=== PATIENT | male | born 1950 | race American Indian/Alaskan Native ===

== ENCOUNTER 2017-05-08 00:19 | Emergency (ER) | payer MEDICARE ==
[2017-05-08 06:51] VITALS: BP 161/88
--- NOTE | 2017-05-08 08:59 | Emergency Department Report ---
ED ENT HPI - General Chief complaint: Upper Respiratory Infection Stated complaint: URI SX Time Seen by Provider: 05/08/17 08:03 Source: patient Mode of arrival: Ambulatory Limitations: No Limitations - History of Present Illness Initial comments: 67-year-old male past medical history sinusitis, herniated disc presents with complaint of approximately 1 week of nasal congestion and runny nose and sinus irritation/ache. States he has slightly dry cough which has resolved. Denies fevers chills nausea or vomiting. Awake alert and oriented 3. Nonacute distress. States he was taking [id number] nasal sprays with minimal relief of his symptoms. Onset/Timin -: month(s) Location: nose Severity: moderate Severity scale (0 -10): 6 Quality: aching Consistency: constant Improves with: none Worsens with: none Context- Dental: history of dental caries - Related Data Previous Rx's Medication Instructions Recorded Last Taken Type Amoxicillin/Potassium Clav 1 each PO BID #20 tablet 05/08/17 Unknown Rx [Augmentin 875-125 Tablet] Cetirizine HCl [ZyrTEC] 10 mg PO QDAY PRN #14 capsule 05/08/17 Unknown Rx Ibuprofen [Motrin] 600 mg PO Q8H PRN #30 tablet 05/08/17 Unknown Rx Allergies Allergy/AdvReac Type Severity Reaction Status Date / Time erythromycin base Allergy Rash Verified 05/08/17 00:58 Sulfa (Sulfonamide Allergy Itching Verified 05/08/17 00:58 Antibiotics) ED Dental HPI - General Chief complaint: Upper Respiratory Infection Stated complaint: URI SX Time Seen by Provider: 05/08/17 08:03 Source: patient Mode of arrival: Ambulatory Limitations: No Limitations - Related Data Previous Rx's Medication Instructions Recorded Last Taken Type Amoxicillin/Potassium Clav 1 each PO BID #20 tablet 05/08/17 Unknown Rx [Augmentin 875-125 Tablet] Cetirizine HCl [ZyrTEC] 10 mg PO QDAY PRN #14 capsule 05/08/17 Unknown Rx Ibuprofen [Motrin] 600 mg PO Q8H PRN #30 tablet 05/08/17 Unknown Rx Allergies Allergy/AdvReac Type Severity Reaction Status Date / Time erythromycin base Allergy Rash Verified 05/08/17 00:58 Sulfa (Sulfonamide Allergy Itching Verified 05/08/17 00:58 Antibiotics) ED Review of Systems ROS: Stated complaint: URI SX Other details as noted in HPI Constitutional: denies: chills, fever Eyes: denies: eye pain, eye discharge, vision change ENT: as per HPI. denies: ear pain, throat pain Respiratory: denies: cough, shortness of breath, wheezing Cardiovascular: denies: chest pain, palpitations Endocrine: no symptoms reported Gastrointestinal: denies: abdominal pain, nausea, diarrhea Genitourinary: denies: urgency, dysuria Musculoskeletal: denies: back pain, joint swelling, arthralgia Skin: denies: rash, lesions Neurological: denies: headache, weakness, paresthesias Psychiatric: denies: anxiety, depression Hematological/Lymphatic: denies: easy bleeding, easy bruising ED Past Medical Hx - Past Medical History Previous Medical History?: No Additional medical history: herniated disc - Surgical History Past Surgical History?: Yes Additional Surgical History: cataract sx 2009-bilaterally - Social History Smoking Status: Light Tobacco Smoker Substance Use Type: None - Medications Home Medications: Home Medications Medication Instructions Recorded Confirmed Last Taken Type Amoxicillin/Potassium Clav 1 each PO BID #20 tablet 05/08/17 Unknown Rx [Augmentin 875-125 Tablet] Cetirizine HCl [ZyrTEC] 10 mg PO QDAY PRN #14 capsule 05/08/17 Unknown Rx Ibuprofen [Motrin] 600 mg PO Q8H PRN #30 tablet 05/08/17 Unknown Rx ED Physical Exam - General Limitations: No Limitations General appearance: alert, in no apparent distress - Head Head exam: Present: atraumatic, normocephalic - Eye Eye exam: Present: normal appearance, PERRL, EOMI - ENT ENT exam: Present: mucous membranes moist - Expanded ENT Exam Expanded Mouth exam: Present: normal external inspection Teeth exam: Present: normal inspection - Neck Neck exam: Present: normal inspection, full ROM - Respiratory Respiratory exam: Present: normal lung sounds bilaterally (lungs clear to auscultation bilaterally). Absent: respiratory distress - Cardiovascular Cardiovascular Exam: Present: regular rate, normal rhythm. Absent: systolic murmur, diastolic murmur, rubs, gallop - GI/Abdominal GI/Abdominal exam: Present: soft, normal bowel sounds - Rectal Rectal exam: Present: deferred - Extremities Exam Extremities exam: Present: normal inspection - Back Exam Back exam: Present: normal inspection - Neurological Exam Neurological exam: Present: alert, oriented X3, CN II-XII intact, normal gait - Psychiatric Psychiatric exam: Present: normal affect, normal mood - Skin Skin exam: Present: warm, dry, intact, normal color. Absent: rash ED Course Vital Signs 05/08/17 05/08/17 00:47 06:32 Temperature 98.7 F 98.7 F Pulse Rate 99 H 81 Respiratory 20 16 Rate Blood Pressure 159/99 Blood Pressure 161/88 [Left] O2 Sat by Pulse 100 100 Oximetry ED Medical Decision Making - Medical Decision Making A/P: Acute sinusitis 1-10 day course of Augmentin 2-Flonase, Zyrtec, Motrin when necessary 3-follow-up with primary care in the emergency 4- vital signs stable for discharge Critical care attestation.: If time is entered above; I have spent that time in minutes in the direct care of this critically ill patient, excluding procedure time. ED Disposition Clinical Impression: Acute sinusitis Qualifiers: Sinusitis location: frontal Recurrence: recurrent Qualified Code(s): J01.11 - Acute recurrent frontal sinusitis Disposition: TO HOME OR SELFCARE Is pt being admited?: No Does the pt Need Aspirin: No Condition: Stable Instructions: Sinusitis (ED), Acute Bacterial Rhinosinusitis (ED) Prescriptions: Amoxicillin/Potassium Clav [Augmentin 875-125 Tablet] 1 each PO BID #20 tablet Cetirizine HCl [ZyrTEC] 10 mg PO QDAY PRN #14 capsule PRN Reason: Congestion Ibuprofen [Motrin] 600 mg PO Q8H PRN #30 tablet PRN Reason: Pain Referrals: [facility] [Outside] - 3-5 Days [facility] [Outside] - 3-5 Days STEFFI ALEMAN MD [Staff Physician] - [facility] - 3-5 Days ENT [facility] [Provider Group] - 3-5 Days Time of Disposition: 09:02
== END 2017-05-08 09:11 | disposition home or self-care (01) ==
LOC: ED 00:19
DX: J01.11 Acute recurrent frontal sinusitis (principal); F17.200 Nicotine dependence, unspecified, uncomplicated; Z88.1 Allergy status to other antibiotic agents; Z88.2 Allergy status to sulfonamides
CPT/HCPCS: 99282

== ENCOUNTER 2019-05-21 09:06 | Emergency (ER) | payer MEDICARE ==
--- NOTE | 2019-05-21 10:19 | Emergency Department Report ---
ED Abdominal Pain HPI - General Chief Complaint: Abdominal Pain Stated Complaint: ABD PAIN/LOOSE STOOL/GAS Time Seen by Provider: 05/21/19 10:12 Source: patient Mode of arrival: Ambulatory Limitations: No Limitations - History of Present Illness Initial Comments: A 9-year-old -Portuguese male patient without significant past medical history presents with complaints of watery diarrhea and feeling gassy 2 weeks. He admits to intermittent epigastric pain that occurs when he feels like he needs to pass gas. Denies any antibiotic use in the past month, nausea/vomiting, hematochezia/melena, or history of abdominal surgeries. He admits to history of GERD that he treats with [id number] antacids. He denies any current abdominal pain. -: Gradual, week(s) Location: epigastric Severity scale (0 -10): 4 - Related Data Previous Rx's Medication Instructions Recorded Last Taken Type Amoxicillin/Potassium Clav 1 each PO BID #20 tablet 05/08/17 Unknown Rx [Augmentin 875-125 Tablet] Cetirizine HCl [ZyrTEC] 10 mg PO QDAY PRN #14 capsule 05/08/17 Unknown Rx DOXYCYCLINE Hyclate [Vibramycin 100 mg PO Q12HR #20 capsule 05/08/17 Unknown Rx CAP] Ibuprofen [Motrin] 600 mg PO Q8H PRN #30 tablet 05/08/17 Unknown Rx Pantoprazole [Protonix TAB] 20 mg PO QDAY 14 Days #14 tablet. 05/21/19 Unknown Rx Simethicone 125 mg PO QID PRN #30 capsule 05/21/19 Unknown Rx lisinopriL [Zestril TAB] 40 mg PO QDAY #30 tablet 05/21/19 Unknown Rx Allergies Allergy/AdvReac Type Severity Reaction Status Date / Time erythromycin base Allergy Rash Verified 05/08/17 00:58 Sulfa (Sulfonamide Allergy Itching Verified 05/08/17 00:58 Antibiotics) ED Review of Systems ROS: Stated complaint: ABD PAIN/LOOSE STOOL/GAS Other details as noted in HPI Constitutional: denies: chills, fever ENT: denies: ear pain, throat pain Respiratory: denies: cough, shortness of breath, wheezing Cardiovascular: denies: chest pain, palpitations Endocrine: denies: excessive sweating Gastrointestinal: abdominal pain, diarrhea. denies: nausea, vomiting, constipation, hematemesis, melena Genitourinary: denies: dysuria, frequency Musculoskeletal: denies: back pain Skin: denies: rash, lesions Psychiatric: denies: anxiety, depression Hematological/Lymphatic: denies: easy bleeding, easy bruising ED Past Medical Hx - Past Medical History Previous Medical History?: No Additional medical history: herniated disc - Surgical History Past Surgical History?: Yes Additional Surgical History: cataract sx 2009-bilaterally - Social History Smoking Status: Current Every Day Smoker Substance Use Type: None - Medications Home Medications: Home Medications Medication Instructions Recorded Confirmed Last Taken Type Amoxicillin/Potassium Clav 1 each PO BID #20 tablet 05/08/17 Unknown Rx [Augmentin 875-125 Tablet] Cetirizine HCl [ZyrTEC] 10 mg PO QDAY PRN #14 capsule 05/08/17 Unknown Rx DOXYCYCLINE Hyclate [Vibramycin 100 mg PO Q12HR #20 capsule 05/08/17 Unknown Rx CAP] Ibuprofen [Motrin] 600 mg PO Q8H PRN #30 tablet 05/08/17 Unknown Rx Pantoprazole [Protonix TAB] 20 mg PO QDAY 14 Days #14 tablet. 05/21/19 Unknown Rx Simethicone 125 mg PO QID PRN #30 capsule 05/21/19 Unknown Rx lisinopriL [Zestril TAB] 40 mg PO QDAY #30 tablet 05/21/19 Unknown Rx ED Physical Exam - General Limitations: No Limitations General appearance: alert, in no apparent distress - Head Head exam: Present: atraumatic, normocephalic - Eye Eye exam: Present: normal appearance. Absent: scleral icterus - ENT ENT exam: Present: mucous membranes moist - Neck Neck exam: Present: normal inspection - Respiratory Respiratory exam: Present: normal lung sounds bilaterally. Absent: respiratory distress - Cardiovascular Cardiovascular Exam: Present: regular rate, normal rhythm. Absent: systolic murmur, diastolic murmur, rubs, gallop - GI/Abdominal GI/Abdominal exam: Present: soft, normal bowel sounds. Absent: distended, tenderness, guarding, rebound, rigid, hyperactive bowel sounds, mass, bruit, pulsatile mass, hernia - Extremities Exam Extremities exam: Present: normal inspection. Absent: pedal edema - Back Exam Back exam: Present: normal inspection. Absent: CVA tenderness (R), CVA tenderness (L) - Neurological Exam Neurological exam: Present: alert, oriented X3 - Psychiatric Psychiatric exam: Present: normal affect, normal mood - Skin Skin exam: Present: warm, dry, intact, normal color. Absent: rash ED Course Vital Signs 05/21/19 05/21/19 05/21/19 09:10 09:14 13:22 Temperature 97.5 F L Pulse Rate 118 H 102 H 77 Respiratory 18 17 Rate Blood Pressure 155/109 O2 Sat by Pulse 99 100 Oximetry ED Medical Decision Making - Lab Data Result diagrams: 05/21/19 10:19 05/21/19 10:19 Lab Results 05/21/19 05/21/19 05/21/19 Range/Units 10:19 10:19 10:54 WBC 9.3 (4.5-11.0) K/mm3 RBC 4.43 (3.65-5.03) M/mm3 Hgb 13.8 (11.8-15.2) gm/dl Hct 39.3 (35.5-45.6) % MCV 89 (84-94) fl MCH 31 (28-32) pg MCHC 35 H (32-34) % RDW 14.1 (13.2-15.2) % Plt Count 260 (140-440) K/mm3 Lymph % (Auto) 27.8 (13.4-35.0) % Tripp % (Auto) 7.0 (0.0-7.3) % Eos % (Auto) 1.6 (0.0-4.3) % Baso % (Auto) 1.1 (0.0-1.8) % Lymph # 2.6 (1.2-5.4) K/mm3 Tripp # 0.6 (0.0-0.8) K/mm3 Eos # 0.2 (0.0-0.4) K/mm3 Baso # 0.1 (0.0-0.1) K/mm3 Seg Neutrophils % 62.5 (40.0-70.0) % Seg Neutrophils # 5.8 (1.8-7.7) K/mm3 Sodium 138 (137-145) mmol/L Potassium 4.9 (3.6-5.0) mmol/L Chloride 101.0 (98-107) mmol/L Carbon Dioxide 22 (22-30) mmol/L Anion Gap 20 mmol/L BUN 12 (9-20) mg/dL Creatinine 1.0 (0.8-1.5) mg/dL Estimated GFR > 60 ml/min BUN/Creatinine Ratio 12 % Glucose 220 H (75-100) mg/dL Calcium 9.7 (8.4-10.2) mg/dL Total Bilirubin 0.50 (0.1-1.2) mg/dL AST 12 (5-40) units/L ALT 9 (7-56) units/L Alkaline Phosphatase 76 (35-129) units/L Total Protein 7.9 (6.3-8.2) g/dL Albumin 4.5 (3.9-5) g/dL Albumin/Globulin Ratio 1.3 % Lipase 7 L (13-60) units/L Urine Color Yellow (Yellow) Urine Turbidity Slightly-cloudy (Clear) Urine pH 5.0 (5.0-7.0) Ur Specific [place] 1.026 (1.003-1.030) Urine Protein 100 mg/dl (Negative) mg/dL Urine Glucose (UA) Neg (Negative) mg/dL Urine Ketones Tr (Negative) mg/dL Urine Blood Sm (Negative) Urine Nitrite Neg (Negative) Urine Bilirubin Neg (Negative) Urine Urobilinogen < 2.0 (<2.0) mg/dL Ur Leukocyte Esterase Neg (Negative) Urine WBC (Auto) 2.0 (0.0-6.0) /HPF Urine RBC (Auto) 2.0 (0.0-6.0) /HPF U Epithel Cells (Auto) 1.0 (0-13.0) /HPF Urine Bacteria (Auto) 1+ (Negative) /HPF Hyaline Casts 9 /LPF Urine Mucus 3+ /HPF - Radiology Data Radiology results: report reviewed ABDOMEN 1 VIEW INDICATION / CLINICAL INFORMATION: diarrhea, flatulence, abdominal pain. COMPARISON: None available. FINDINGS: TUBES / LINES: None. BOWEL GAS PATTERN: No significant abnormality. FREE AIR / EXTRALUMINAL GAS: None seen. ADDITIONAL FINDINGS: No significant additional findings. IMPRESSION: 1. No significant abnormality. - Medical Decision Making 69-year-old male patient without significant past medical history presents with complaints of abdominal bloating, flatulence, and watery diarrhea 2 weeks. Denies any red flag symptoms or history. tachycardia noted on initial vitals, vitals are otherwise WNL. Abdomen noted to be at 20. Blood glucose level also noted at 220, patient denies history of diabetes. Labs are otherwise normal. Abdominal x-ray is normal. Abdominal illness noted on exam. Patient appears well and nontoxic. Hearte improved from an 118 to 1 L fluid bolus 77 bpm. Patient is stable for discharge home with follow-up with primary care provider concerning his elevated BG level and HTN and gastroenterology for abdominal symptoms. Patient given Protonix and simethicone for the medic treatment. Discussed strict return precautions in detail with patient who verbalizes understanding. Pt also requesting prescription refill for lisinopril 40 mg. Critical care attestation.: If time is entered above; I have spent that time in minutes in the direct care of this critically ill patient, excluding procedure time. ED Disposition Clinical Impression: Watery diarrhea, Bloating, Flatulence, Acute hyperglycemia Disposition: - TO HOME OR SELFCARE Is pt being admited?: No Condition: Stable Instructions: Acute Diarrhea (ED), Gas and Bloating (ED), Hyperglycemia, Non- Diabetic (ED) Prescriptions: Pantoprazole [Protonix TAB] 20 mg PO QDAY 14 Days #14 tablet.dr Hunterethiconashley 125 mg PO QID PRN #30 capsule PRN Reason: flatuence/bloating lisinopriL [Zestril TAB] 40 mg PO QDAY #30 tablet Referrals: STEVE BARRERA MD [Staff Physician] - 3-5 Days [facility] [Provider Group] - 3-5 Days
[2019-05-21 10:41] LABS: Basophils # (Auto) 0.1 K/mm3 (0.0-0.1); Basophils % (Auto) 1.1 % (0.0-1.8); Eosinophils # (Auto) 0.2 K/mm3 (0.0-0.4); Eosinophils % (Auto) 1.6 % (0.0-4.3); Hematocrit 39.3 % (35.5-45.6); Hemoglobin 13.8 gm/dl (11.8-15.2); Lymphocytes # (Auto) 2.6 K/mm3 (1.2-5.4); Lymphocytes % (Auto) 27.8 % (13.4-35.0); Mean Corpuscular HGB Conc 35 % (32-34); Mean Corpuscular Volume 89 fl (84-94); Monocytes # (Auto) 0.6 K/mm3 (0.0-0.8); Platelet Count 260 K/mm3 (140-440); Red Blood Count 4.43 M/mm3 (3.65-5.03); Red Cell Distribution Width 14.1 % (13.2-15.2)
[2019-05-21 10:57] LABS: Alanine Aminotransferase 9 units/L (7-56); Albumin 4.5 g/dL (3.9-5); BUN/Creatinine Ratio 12; Blood Urea Nitrogen 12 mg/dL (9-20); Calcium 9.7 mg/dL (8.4-10.2); Hemolysis Index 9
[2019-05-21 11:18] LABS: Bacteria,Urine 1+ /HPF (Negative); Bilirubin,Urine NEG (Negative); Blood,Urine SM (Negative); Color,Urine Yellow (Yellow); Hyaline Casts,Urine 9 /LPF; Mucus,Urine 3+ /HPF; Urobilinogen,Urine < 2.0 mg/dL (<2.0)
--- NOTE | 2019-05-21 11:55 | XRay Report ---
ABDOMEN 1 VIEW INDICATION / CLINICAL INFORMATION: diarrhea, flatulence, abdominal pain. COMPARISON: None available. FINDINGS: TUBES / LINES: None. BOWEL GAS PATTERN: No significant abnormality. FREE AIR / EXTRALUMINAL GAS: None seen. ADDITIONAL FINDINGS: No significant additional findings. IMPRESSION: 1. No significant abnormality. Signer Name: Haris Joy MD Signed: 05/21/2019 11:51 AM Workstation Name: [id number]
[2019-05-21] MEDS: SODIUM CHLORIDE 0.9% 1000 ML 1,000 ML IV ONE (12:21)
[2019-05-21 13:46] VITALS: BP 146/85
== END 2019-05-21 13:45 | disposition home or self-care (01) ==
LOC: ED 09:06
DX: R19.7 Diarrhea, unspecified (principal); R14.0 Abdominal distension (gaseous); R14.3 Flatulence; R73.9 Hyperglycemia, unspecified; F17.200 Nicotine dependence, unspecified, uncomplicated; Z98.890 Other specified postprocedural states; Z79.1 Long term (current) use of non-steroidal anti-inflammatories (NSAID); Z79.2 Long term (current) use of antibiotics; Z79.899 Other long term (current) drug therapy; Z88.2 Allergy status to sulfonamides; Z88.8 Allergy status to other drugs, medicaments and biological substances
CPT/HCPCS: 36415; 74018; 80053; 81001; 83690; 85025; 96360; 99284; J7030